=== PATIENT | female | born 1975 | race African-American/Black ===

== ENCOUNTER 2016-07-07 15:05 | Inpatient (IN) | payer OTHER ==
[~2016-07-07] VITALS: Ht 167.6 cm; Wt 85.8 kg
[2016-07-07] MEDS ORDERED: CARV12 PO (15:26)
[2016-07-07] MEDS ORDERED: BUME1TAB30 PO (15:26)
[2016-07-07] MEDS ORDERED: ENOX30DI5 SQ (15:26)
[2016-07-07] MEDS ORDERED: ASPI-556 PO (15:26)
[2016-07-07] MEDS ORDERED: LOSA50TA37 PO (15:26)
[2016-07-07] MEDS ORDERED: NITROGLYCERIN 2% (1 GM=INCH) PACKET TP ONE (15:45)
[2016-07-07] MEDS ORDERED: ONDANSETRON HCL 4 MG/2 ML VIAL IVP ONE (15:45)
[2016-07-07] MEDS ORDERED: ASPIRIN 81 MG CHEWABLE TABLET PO ONE (15:45)
[2016-07-07] MEDS ORDERED: MORPHINE SULFATE 4 MG/ML SYRINGE IVP ONE ×2 (15:45→17:30)
[2016-07-07 16:37] LABS: BASOPHILS % (AUTO) 0.4 % (0.0-2.0); EOSINOPHILS % (AUTO) 0.3 % (1.0-6.0); HEMATOCRIT 33.6 % (36-46); HEMOGLOBIN 10.6 g/dL (12.0-16.0); LYMPHOCYTES # (AUTO) 0.7 K/uL (1.0-4.8); LYMPHOCYTES % (AUTO) 15.8 % (22.0-44.0); MEAN CORPUSCULAR HEMOGLOBIN 26.6 pg (26.0-34.0); MEAN CORPUSCULAR HGB CONC 31.6 G/dL (31.0-37.0); MEAN CORPUSCULAR VOLUME 84 fL (80-100); MONOCYTES # (AUTO) 0.1 K/uL (0.1-1.0); MONOCYTES % (AUTO) 2.9 % (2.0-9.0); NEUTROPHILS # (AUTO) 3.7 K/uL (1.8-7.7); NEUTROPHILS % (AUTO) 80.6 % (40.0-70.0); PLATELET COUNT (AUTO) 127 K/uL (150-450); RED BLOOD CELL COUNT(AUTO) 3.99 MIL/uL (4.00-5.20); RED CELL DISTRIBUTION WIDTH 19.5 % (11.5-14.5); WHITE BLOOD COUNT (AUTO) 4.7 K/uL (4.5-11.0)
[2016-07-07 16:44] LABS: ANION GAP 11 mmol/L (8-16); CARBON DIOXIDE 24 mmol/L (22-29); CHLORIDE 102 mmol/L (98-107); CREATININE 0.96 mg/dL (0.60-1.30); POTASSIUM 5.7 mmol/L (3.5-5.1); SODIUM SERUM 137 mmol/L (136-145); UREA NITROGEN, BLOOD 21 mg/dL (7-18)
[2016-07-07 16:45] LABS: CALCIUM, TOTAL 9.2 mg/dL (8.8-10.5); GLOMERULAR FILTR. RATE CALC > 60 mL/min (>60)
[2016-07-07] MEDS ORDERED: IOVERSOL 350 MG/ML 100 ML VIAL ONE (16:48)
[2016-07-07 16:49] LABS: INR 1.1 (0.9-1.1); PROTHROMBIN TIME 11.1 SEC (9.4-11.6)
[2016-07-07 16:50] LABS: RBC MORPHOLOGY COMMENT ABNORMAL RBC MORPH
[2016-07-07 16:59] LABS: B-TYPE NATRIURETIC PEPTIDE 1530 pg/mL (0-100)
[2016-07-07] MEDS ORDERED: FUROSEMIDE 40 MG/4 ML VIAL IVP ONE (17:00)
[2016-07-07 17:09] LABS: ALANINE AMINOTRANSFERASE 49 U/L (12-78); ALBUMIN 3.6 g/dL (3.4-5.0); ASPARTATE AMINOTRANSFERASE 40 U/L (15-37); BILIRUBIN,TOTAL 0.4 mg/dL (0.1-1.0); CREATINE KINASE MB 0.7 ng/mL (0-5); CREATINE KINASE, TOTAL 99 U/L (26-192); TOTAL PROTEIN, SERUM 7.7 g/dL (6.4-8.2)
[2016-07-07] MEDS ORDERED: ALBUTEROL SULFATE 2.5 MG/0.5 ML NEB SOLUTION NEB PRN (18:30)
[2016-07-07] MEDS ORDERED: ACETAMINOPHEN 325 MG TABLET PO PRN (18:30)
[2016-07-07 18:56] LABS: APPEARANCE,URINE CLEAR (CLEAR); GLUCOSE, URINE (UA) NEGATIVE (NEGATIVE); KETONES,URINE NEGATIVE (NEGATIVE); LEUKOCYTE ESTERASE ,URINE SMALL (NEGATIVE); OCCULT BLOOD,URINE NEGATIVE (NEGATIVE); PH,URINE 6.5 (5.0-8.0); PROTEIN,URINE NEGATIVE (NEGATIVE)
[2016-07-07 19:00] LABS: ADD UA MICROSCOPIC YES
[2016-07-07 19:11] LABS: RBC,URINE None Seen /HPF (0-2); SQUAMOUS EPITHELIAL CELL,UR Moderate /LPF (None Seen)
[2016-07-07 20:30] VITALS: BP 111/76
[2016-07-07] MEDS: ONDANSETRON HCL 4 MG/2 ML VIAL IVP PRN (21:02)
[2016-07-07] MEDS: MORPHINE SULFATE 2 MG/ML SYRINGE IVP PRN ×2 (21:04→23:16)
[2016-07-07] MEDS: ZOLPIDEM TARTRATE 5 MG TABLET PO PRN (22:25)
[2016-07-07 23:20] VITALS: BP 101/73
[2016-07-07] MEDS ORDERED: PNEUMOCOCCAL VACCINE POLYVALENT 0.5 ML VIAL [PPSV23] IM ONE (23:45)
[2016-07-08] VITALS (10 sets, daily range): BP systolic 95–111; BP diastolic 65–79
[2016-07-08] MEDS: HEPARIN SODIUM,PORCINE 5,000 UNITS/ML VIAL SQ SCH ×2 (00:22→08:49)
[2016-07-08] MEDS: MORPHINE SULFATE 2 MG/ML SYRINGE IVP PRN ×10 (02:10→22:59)
[2016-07-08] MEDS ORDERED: SODIUM CHLORIDE 0.9% 250 ML IV ONE (02:29)
[2016-07-08] MEDS: LEVOFLOXACIN 500 MG/D5% WATER 100 ML IV SCH (02:40)
[2016-07-08] MEDS: ONDANSETRON HCL 4 MG/2 ML VIAL IVP PRN ×3 (04:27→18:18)
[2016-07-08] MEDS ORDERED: CARI350T PO (05:11)
[2016-07-08] MEDS ORDERED: FOLI1TAB15 PO (05:11)
[2016-07-08] MEDS ORDERED: MULT-1203 PO (05:11)
[2016-07-08] MEDS ORDERED: METO25 PO (05:11)
[2016-07-08] MEDS ORDERED: CLON0.5T4 PO (05:16)
[2016-07-08] MEDS ORDERED: MORP30TA44 PO (05:16)
[2016-07-08 06:35] LABS: BASOPHILS % (AUTO) 0.4 % (0.0-2.0); EOSINOPHILS % (AUTO) 0.6 % (1.0-6.0); HEMATOCRIT 30.1 % (36-46); HEMOGLOBIN 9.5 g/dL (12.0-16.0); LYMPHOCYTES # (AUTO) 1.3 K/uL (1.0-4.8); LYMPHOCYTES % (AUTO) 26.7 % (22.0-44.0); MEAN CORPUSCULAR HEMOGLOBIN 26.7 pg (26.0-34.0); MEAN CORPUSCULAR HGB CONC 31.5 G/dL (31.0-37.0); MEAN CORPUSCULAR VOLUME 85 fL (80-100); MONOCYTES # (AUTO) 0.3 K/uL (0.1-1.0); MONOCYTES % (AUTO) 5.9 % (2.0-9.0); NEUTROPHILS # (AUTO) 3.3 K/uL (1.8-7.7); NEUTROPHILS % (AUTO) 66.4 % (40.0-70.0); PLATELET COUNT (AUTO) 141 K/uL (150-450); RED BLOOD CELL COUNT(AUTO) 3.55 MIL/uL (4.00-5.20); RED CELL DISTRIBUTION WIDTH 18.8 % (11.5-14.5); WHITE BLOOD COUNT (AUTO) 4.9 K/uL (4.5-11.0)
[2016-07-08 06:40] LABS: ALANINE AMINOTRANSFERASE 36 U/L (12-78); ALBUMIN 3.2 g/dL (3.4-5.0); ANION GAP 10 mmol/L (8-16); ASPARTATE AMINOTRANSFERASE 25 U/L (15-37); BILIRUBIN,TOTAL 0.4 mg/dL (0.1-1.0); CALCIUM, TOTAL 8.7 mg/dL (8.8-10.5); CARBON DIOXIDE 25 mmol/L (22-29); CHLORIDE 101 mmol/L (98-107); CREATININE 1.07 mg/dL (0.60-1.30); GLOMERULAR FILTR. RATE CALC > 60 mL/min (>60); POTASSIUM 4.4 mmol/L (3.5-5.1); SODIUM SERUM 136 mmol/L (136-145); TOTAL PROTEIN, SERUM 6.8 g/dL (6.4-8.2); UREA NITROGEN, BLOOD 18 mg/dL (7-18)
[2016-07-08 06:41] LABS: CHOL/HDL RATIO 2.8 (3.9-5.7); THYROID STIMULATING HORMONE 3.85 uIU/mL (0.36-3.74)
[2016-07-08 08:11] LABS: IRON, SERUM 54 mcg/dL (50-175); TOTAL IRON BINDING CAPACITY 458 mcg/dL (250-450)
[2016-07-08] MEDS: PANTOPRAZOLE SODIUM 40 MG DR TABLET PO SCH (08:51)
[2016-07-08] MEDS: ASPIRIN 81 MG EC TABLET PO SCH (08:51)
[2016-07-08] MEDS ORDERED: BUMETANIDE 1 MG TABLET PO SCH (09:00)
[2016-07-08] MEDS ORDERED: CARVEDILOL 12.5 MG TABLET PO SCH (09:00)
[2016-07-08] MEDS ORDERED: LOSARTAN POTASSIUM 50 MG TABLET PO SCH (09:00)
[2016-07-08 09:06] LABS: RBC MORPHOLOGY COMMENT ABNORMAL RBC MORPH
[2016-07-08 09:56] LABS: SICKLE SCREEN NEGATIVE (NEGATIVE)
[2016-07-08] MEDS: SACUBITRIL/VALSARTAN 24-26 MG TABLET PO SCH ×2 (10:45→21:00)
[2016-07-08] MEDS: SPIRONOLACTONE 25 MG TABLET PO SCH (11:00)
[2016-07-08] MEDS ORDERED: ENOX100D5 SQ (11:07)
[2016-07-08] MEDS: FUROSEMIDE 40 MG/4 ML VIAL IVP SCH ×2 (12:26→21:00)
[2016-07-08] MEDS: OxyCODONE HCL/ACETAMINOPHEN 5-325 MG TABLET PO PRN ×2 (17:16→21:32)
[2016-07-08] MEDS: CARVEDILOL 12.5 MG TABLET PO SCH (21:00)
[2016-07-08] MEDS: ZOLPIDEM TARTRATE 5 MG TABLET PO PRN (21:32)
[2016-07-09] MEDS: MORPHINE SULFATE 2 MG/ML SYRINGE IVP PRN ×9 (01:13→23:45)
[2016-07-09] MEDS: LEVOFLOXACIN 500 MG/D5% WATER 100 ML IV SCH (01:13)
[2016-07-09] MEDS: ONDANSETRON HCL 4 MG/2 ML VIAL IVP PRN ×4 (01:20→23:45)
[2016-07-09] MEDS ORDERED: SODIUM CHLORIDE 0.9% 250 ML IV ONE (01:28)
[2016-07-09 04:00] VITALS: BP 103/73
[2016-07-09 07:30] VITALS: BP 101/70
[2016-07-09] MEDS: FUROSEMIDE 40 MG/4 ML VIAL IVP SCH ×2 (07:57→21:00)
[2016-07-09] MEDS: ASPIRIN 81 MG EC TABLET PO SCH (07:58)
[2016-07-09] MEDS: CARVEDILOL 12.5 MG TABLET PO SCH ×2 (07:59→21:10)
[2016-07-09] MEDS: PANTOPRAZOLE SODIUM 40 MG DR TABLET PO SCH (08:34)
[2016-07-09] MEDS: ENOXAPARIN SODIUM 100 MG/ML PF SYRINGE SQ SCH (08:34)
[2016-07-09] MEDS: SPIRONOLACTONE 25 MG TABLET PO SCH (09:00)
[2016-07-09] MEDS: OxyCODONE HCL/ACETAMINOPHEN 5-325 MG TABLET PO PRN (09:14)
[2016-07-09 09:18] LABS: BASOPHILS % (AUTO) 0.7 % (0.0-2.0); EOSINOPHILS % (AUTO) 1.5 % (1.0-6.0); HEMATOCRIT 30.3 % (36-46); HEMOGLOBIN 9.6 g/dL (12.0-16.0); LYMPHOCYTES # (AUTO) 1.4 K/uL (1.0-4.8); LYMPHOCYTES % (AUTO) 35.6 % (22.0-44.0); MEAN CORPUSCULAR HEMOGLOBIN 26.8 pg (26.0-34.0); MEAN CORPUSCULAR HGB CONC 31.9 G/dL (31.0-37.0); MEAN CORPUSCULAR VOLUME 84 fL (80-100); MONOCYTES # (AUTO) 0.3 K/uL (0.1-1.0); MONOCYTES % (AUTO) 6.9 % (2.0-9.0); NEUTROPHILS # (AUTO) 2.1 K/uL (1.8-7.7); NEUTROPHILS % (AUTO) 55.3 % (40.0-70.0); PLATELET COUNT (AUTO) 142 K/uL (150-450); RED CELL DISTRIBUTION WIDTH 19.4 % (11.5-14.5); WHITE BLOOD COUNT (AUTO) 3.8 K/uL (4.5-11.0)
[2016-07-09 09:47] LABS: ALANINE AMINOTRANSFERASE 34 U/L (12-78); ALBUMIN 3.3 g/dL (3.4-5.0); ANION GAP 12 mmol/L (8-16); ASPARTATE AMINOTRANSFERASE 23 U/L (15-37); CARBON DIOXIDE 24 mmol/L (22-29); CHLORIDE 100 mmol/L (98-107); CREATININE 1.12 mg/dL (0.60-1.30); GLOMERULAR FILTR. RATE CALC > 60 mL/min (>60); POTASSIUM 4.1 mmol/L (3.5-5.1); SODIUM SERUM 136 mmol/L (136-145); TOTAL PROTEIN, SERUM 7.2 g/dL (6.4-8.2)
[2016-07-09 09:57] LABS: RBC MORPHOLOGY COMMENT ABNORMAL RBC MORPH
[2016-07-09 10:04] LABS: BILIRUBIN,TOTAL 0.5 mg/dL (0.1-1.0); UREA NITROGEN, BLOOD 19 mg/dL (7-18)
[2016-07-09 11:25] VITALS: BP 127/69
[2016-07-09] MEDS: SACUBITRIL/VALSARTAN 24-26 MG TABLET PO SCH ×2 (12:11→21:00)
[2016-07-09 15:30] VITALS: BP 98/62
[2016-07-09 19:26] VITALS: BP 145/73
[2016-07-09 23:56] VITALS: BP 101/74
[2016-07-10] VITALS (8 sets, daily range): BP systolic 83–116; BP diastolic 54–75
[2016-07-10] MEDS: LEVOFLOXACIN 500 MG/D5% WATER 100 ML IV SCH (00:05)
[2016-07-10] MEDS: MORPHINE SULFATE 2 MG/ML SYRINGE IVP PRN ×8 (01:52→22:11)
[2016-07-10] MEDS ORDERED: 0.9% SODIUM CHLORIDE 10 ML SYRINGE IVP PRN (03:45)
[2016-07-10] MEDS: ONDANSETRON HCL 4 MG/2 ML VIAL IVP PRN ×3 (04:50→19:49)
[2016-07-10 06:49] LABS: ANION GAP 9 mmol/L (8-16); CALCIUM, TOTAL 8.7 mg/dL (8.8-10.5); CARBON DIOXIDE 25 mmol/L (22-29); CHLORIDE 105 mmol/L (98-107); CREATININE 1.11 mg/dL (0.60-1.30); GLOMERULAR FILTR. RATE CALC > 60 mL/min (>60); POTASSIUM 4.5 mmol/L (3.5-5.1); SODIUM SERUM 139 mmol/L (136-145); UREA NITROGEN, BLOOD 21 mg/dL (7-18)
[2016-07-10] MEDS: SACUBITRIL/VALSARTAN 24-26 MG TABLET PO SCH ×3 (09:00→22:10)
[2016-07-10] MEDS: CARVEDILOL 12.5 MG TABLET PO SCH ×3 (09:00→23:14)
[2016-07-10] MEDS: FUROSEMIDE 40 MG/4 ML VIAL IVP SCH ×2 (09:00→23:14)
[2016-07-10] MEDS: SPIRONOLACTONE 25 MG TABLET PO SCH (09:00)
[2016-07-10] MEDS: PANTOPRAZOLE SODIUM 40 MG DR TABLET PO SCH (09:24)
[2016-07-10] MEDS: ENOXAPARIN SODIUM 100 MG/ML PF SYRINGE SQ SCH (09:24)
[2016-07-10] MEDS: ASPIRIN 81 MG EC TABLET PO SCH (09:24)
[2016-07-10] MEDS: OxyCODONE HCL/ACETAMINOPHEN 5-325 MG TABLET PO PRN ×2 (10:46→18:30)
[2016-07-10] MEDS: ZOLPIDEM TARTRATE 5 MG TABLET PO PRN (23:13)
[2016-07-11] MEDS: MORPHINE SULFATE 2 MG/ML SYRINGE IVP PRN ×7 (00:31→18:03)
[2016-07-11] MEDS: LEVOFLOXACIN 500 MG/D5% WATER 100 ML IV SCH (00:31)
[2016-07-11] MEDS: ONDANSETRON HCL 4 MG/2 ML VIAL IVP PRN ×2 (03:36→12:04)
[2016-07-11 05:13] VITALS: BP 119/71
[2016-07-11 07:22] VITALS: BP 113/67
[2016-07-11] MEDS: SACUBITRIL/VALSARTAN 24-26 MG TABLET PO SCH ×2 (08:51→09:00)
[2016-07-11] MEDS: SPIRONOLACTONE 25 MG TABLET PO SCH (08:51)
[2016-07-11] MEDS: PANTOPRAZOLE SODIUM 40 MG DR TABLET PO SCH (08:51)
[2016-07-11] MEDS: FUROSEMIDE 40 MG/4 ML VIAL IVP SCH (08:52)
[2016-07-11] MEDS: CARVEDILOL 12.5 MG TABLET PO SCH ×2 (08:52→09:00)
[2016-07-11] MEDS: ASPIRIN 81 MG EC TABLET PO SCH (08:52)
[2016-07-11] MEDS: ENOXAPARIN SODIUM 100 MG/ML PF SYRINGE SQ SCH (08:53)
[2016-07-11 11:21] VITALS: BP 125/65
[2016-07-11] MEDS ORDERED: CARV3.1231 PO (13:53)
[2016-07-11] MEDS ORDERED: SACU1TAB PO (14:07)
[2016-07-11] MEDS ORDERED: SPIR25 PO ×3 (14:08→14:10)
[2016-07-11] MEDS ORDERED: OXYC1TAB72 PO (14:11)
[2016-07-11 15:45] VITALS: BP 106/53
[2016-07-11 18:03] VITALS: BP 123/79
== END 2016-07-11 19:15 | disposition home or self-care (01) | DRG 194 ==
LOC: EMS 15:09 → 5S 18:13
PROVIDERS: ADMIT Hospitalist; ATTEND Hospitalist
PROC: 3E0234Z Introduction of Serum, Toxoid and Vaccine into Muscle, Percutaneous Approach (ICD-10-PCS; principal; 2016-07-09)
DX: I50.23 Acute on chronic systolic (congestive) heart failure (principal); D57.00 Hb-SS disease with crisis, unspecified; I42.9 Cardiomyopathy, unspecified; I45.89 Other specified conduction disorders; N39.0 Urinary tract infection, site not specified; E87.5 Hyperkalemia; D57.1 Sickle-cell disease without crisis; I25.2 Old myocardial infarction; M79.661 Pain in right lower leg; R55 Syncope and collapse; E87.6 Hypokalemia; Z88.1 Allergy status to other antibiotic agents; Z86.718 Personal history of other venous thrombosis and embolism; Z79.82 Long term (current) use of aspirin; Z79.899 Other long term (current) drug therapy; Z95.0 Presence of cardiac pacemaker; Z98.890 Other specified postprocedural states; Z95.810 Presence of automatic (implantable) cardiac defibrillator; Z23 Encounter for immunization
CPT/HCPCS: 71260; 82607; 82746; 83540; 83550; 83735; 84443; 85660; 87081; 87086; 90471; 93005; 93306; 93971; 96374; 96375; 99285; J1644; J1650; J1940; J1956; J2270; J2405; J7050

== ENCOUNTER 2016-07-22 02:48 | Inpatient (IN) | payer OTHER ==
[~2016-07-22] VITALS: Ht 170.2 cm; Wt 96.3 kg
[~2016-07-22 02:48] MED LIST: ASPI-556 PO; BUME1TAB30 PO; CARI350T PO; CARV3.1231 PO; CLON0.5T4 PO; ENOX100D5 SQ; FOLI1TAB15 PO; MORP30TA44 PO; OXYC1TAB72 PO; SACU1TAB PO; SPIR25 PO
[2016-07-22] MEDS ORDERED: BUME1TAB30 PO (03:02)
[2016-07-22] MEDS ORDERED: SLOWK8 PO (03:04)
[2016-07-22] MEDS ORDERED: PROM25 PO (03:13)
[2016-07-22] MEDS ORDERED: ONDANSETRON HCL 4 MG/2 ML VIAL IVP ONE (04:00)
[2016-07-22] MEDS ORDERED: HYDROmorphone 2 MG/ML SYRINGE IVP ONE (04:00)
[2016-07-22 04:41] LABS: BASOPHILS # (AUTO) 0.02 K/uL (0.00-0.20); BASOPHILS % (AUTO) 0.6 % (0.0-2.0); EOSINOPHILS # (AUTO) 0.03 K/uL (0.00-0.70); EOSINOPHILS % (AUTO) 0.67 % (1.0-6.0); HEMATOCRIT 28.8 % (36-46); HEMOGLOBIN 9.3 g/dL (12.0-16.0); MEAN CORPUSCULAR HEMOGLOBIN 27.2 pg (26.0-34.0); MEAN CORPUSCULAR HGB CONC 32.3 G/dL (31.0-37.0); MEAN CORPUSCULAR VOLUME 84 fL (80-100); MONOCYTES # (AUTO) 0.3 K/uL (0.1-1.0); MONOCYTES % (AUTO) 7.1 % (2.0-9.0); NEUTROPHILS # (AUTO) 2.4 K/uL (1.8-7.7); NEUTROPHILS % (AUTO) 64.7 % (40.0-70.0); PLATELET COUNT (AUTO) 165 K/uL (150-450); RED BLOOD CELL COUNT(AUTO) 3.41 MIL/uL (4.00-5.20); RED CELL DISTRIBUTION WIDTH 19.7 % (11.5-14.5); WHITE BLOOD COUNT (AUTO) 3.7 K/uL (4.5-11.0)
[2016-07-22 04:53] LABS: ANION GAP 13 mmol/L (8-16); CALCIUM, TOTAL 8.5 mg/dL (8.8-10.5); CARBON DIOXIDE 22 mmol/L (22-29); CHLORIDE 103 mmol/L (98-107); CREATININE 0.93 mg/dL (0.60-1.30); GLOMERULAR FILTR. RATE CALC > 60 mL/min (>60); POTASSIUM 4.2 mmol/L (3.5-5.1); SODIUM SERUM 138 mmol/L (136-145); UREA NITROGEN, BLOOD 20 mg/dL (7-18)
[2016-07-22 04:54] LABS: INR 1.1 (0.9-1.1); PROTHROMBIN TIME 11.5 SEC (9.4-11.6)
[2016-07-22 04:58] LABS: RBC MORPHOLOGY COMMENT ABNORMAL RBC MORPH
[2016-07-22 05:00] LABS: B-TYPE NATRIURETIC PEPTIDE 1200 pg/mL (0-100)
[2016-07-22] MEDS ORDERED: ACETAMINOPHEN 325 MG TABLET PO PRN ×2 (05:15→18:00)
[2016-07-22] MEDS ORDERED: FUROSEMIDE 40 MG/4 ML VIAL IVP ONE (05:15)
[2016-07-22] MEDS ORDERED: 0.9% SODIUM CHLORIDE 10 ML SYRINGE IVP PRN ×2 (05:15→18:00)
[2016-07-22 05:18] LABS: ALANINE AMINOTRANSFERASE 40 U/L (12-78); ALBUMIN 3.2 g/dL (3.4-5.0); ASPARTATE AMINOTRANSFERASE 30 U/L (15-37); BILIRUBIN,TOTAL 0.4 mg/dL (0.1-1.0); CREATINE KINASE MB 1.1 ng/mL (0-5); CREATINE KINASE, TOTAL 121 U/L (26-192); TOTAL PROTEIN, SERUM 6.9 g/dL (6.4-8.2)
[2016-07-22] MEDS ORDERED: MORPHINE SULFATE 2 MG/ML SYRINGE IVP ONE (07:00)
[2016-07-22] MEDS: ONDANSETRON HCL 4 MG/2 ML VIAL IVP PRN ×3 (10:01→20:07)
[2016-07-22 10:15] LABS: ADD UA MICROSCOPIC YES; APPEARANCE,URINE CLEAR (CLEAR); GLUCOSE, URINE (UA) NEGATIVE (NEGATIVE); KETONES,URINE NEGATIVE (NEGATIVE); LEUKOCYTE ESTERASE ,URINE NEGATIVE (NEGATIVE); OCCULT BLOOD,URINE NEGATIVE (NEGATIVE); PROTEIN,URINE POS 1+ (NEGATIVE)
[2016-07-22] MEDS ORDERED: HYDROmorphone 2 MG/ML SYRINGE IVP PRN (10:30)
[2016-07-22 14:40] VITALS: BP 116/78
[2016-07-22] MEDS ORDERED: OXYC5CAP3 PO (14:46)
[2016-07-22] MEDS ORDERED: ZOLP10 PO (14:46)
[2016-07-22] MEDS ORDERED: FOLI1TAB48 PO (14:46)
[2016-07-22] MEDS ORDERED: OXYC10IR PO (15:13)
[2016-07-22] MEDS: HYDROmorphone 2 MG/ML SYRINGE IVP PRN ×2 (16:05→20:02)
[2016-07-22] MEDS ORDERED: OxyCODONE HCL 10 MG IR TABLET PO PRN (17:45)
[2016-07-22] MEDS ORDERED: ZOLPIDEM TARTRATE 10 MG TABLET PO PRN (17:45)
[2016-07-22] MEDS ORDERED: OxyCODONE HCL/ACETAMINOPHEN 5-325 MG TABLET PO PRN ×2 (18:00)
[2016-07-22] MEDS ORDERED: MAGNESIUM HYDROXIDE SUSPENSION 30 ML UDCUP PO PRN (18:00)
[2016-07-22] MEDS: POTASSIUM CHLORIDE 8 MEQ ER TABLET PO SCH (18:17)
[2016-07-22] MEDS: MULTIVITAMINS WITH MINERALS, THERAPEUTIC TABLET PO SCH (18:17)
[2016-07-22] MEDS: PANTOPRAZOLE SODIUM 40 MG/VIAL IVP SCH (18:17)
[2016-07-22 19:31] VITALS: BP 105/78
[2016-07-22] MEDS: SACUBITRIL/VALSARTAN 24-26 MG TABLET PO SCH (20:00)
[2016-07-22] MEDS: DOCUSATE SODIUM 100 MG CAPSULE PO SCH (20:01)
[2016-07-22] MEDS: BUMETANIDE 0.25 MG/ML 4 ML VIAL IVP SCH (20:02)
[2016-07-22] MEDS ORDERED: BUMETANIDE 0.25 MG/ML 4 ML VIAL IVP SCH (21:00)
[2016-07-22 21:22] VITALS: BP 125/85
[2016-07-22] MEDS: CARVEDILOL 3.125 MG TABLET PO SCH (21:24)
[2016-07-22 23:39] VITALS: BP 110/83
[2016-07-23] VITALS (7 sets, daily range): BP systolic 92–116; BP diastolic 57–75
[2016-07-23] MEDS: HYDROmorphone 2 MG/ML SYRINGE IVP PRN ×6 (00:18→22:49)
[2016-07-23] MEDS: ONDANSETRON HCL 4 MG/2 ML VIAL IVP PRN ×3 (04:35→22:49)
[2016-07-23 07:00] LABS: ANION GAP 15 mmol/L (8-16); CARBON DIOXIDE 18 mmol/L (22-29); CHLORIDE 103 mmol/L (98-107); CREATININE 0.95 mg/dL (0.60-1.30); GLOMERULAR FILTR. RATE CALC > 60 mL/min (>60); POTASSIUM 4.6 mmol/L (3.5-5.1); SODIUM SERUM 136 mmol/L (136-145); UREA NITROGEN, BLOOD 22 mg/dL (7-18)
[2016-07-23 07:16] LABS: BASOPHILS % (AUTO) 0.5 % (0.0-2.0); EOSINOPHILS % (AUTO) 0.7 % (1.0-6.0); HEMATOCRIT 29.3 % (36-46); HEMOGLOBIN 9.3 g/dL (12.0-16.0); LYMPHOCYTES # (AUTO) 1.7 K/uL (1.0-4.8); LYMPHOCYTES % (AUTO) 32.3 % (22.0-44.0); MEAN CORPUSCULAR HEMOGLOBIN 26.9 pg (26.0-34.0); MEAN CORPUSCULAR HGB CONC 31.8 G/dL (31.0-37.0); MEAN CORPUSCULAR VOLUME 85 fL (80-100); MONOCYTES # (AUTO) 0.3 K/uL (0.1-1.0); MONOCYTES % (AUTO) 6.7 % (2.0-9.0); NEUTROPHILS # (AUTO) 3.1 K/uL (1.8-7.7); NEUTROPHILS % (AUTO) 59.8 % (40.0-70.0); PLATELET COUNT (AUTO) 184 K/uL (150-450); RED BLOOD CELL COUNT(AUTO) 3.47 MIL/uL (4.00-5.20); WHITE BLOOD COUNT (AUTO) 5.2 K/uL (4.5-11.0)
[2016-07-23] MEDS: PANTOPRAZOLE SODIUM 40 MG/VIAL IVP SCH (08:56)
[2016-07-23] MEDS: MULTIVITAMINS WITH MINERALS, THERAPEUTIC TABLET PO SCH (08:56)
[2016-07-23] MEDS: DOCUSATE SODIUM 100 MG CAPSULE PO SCH ×2 (08:56→21:07)
[2016-07-23] MEDS: POTASSIUM CHLORIDE 8 MEQ ER TABLET PO SCH (08:56)
[2016-07-23] MEDS: ENOXAPARIN SODIUM 100 MG/ML PF SYRINGE SQ SCH (08:56)
[2016-07-23] MEDS: SACUBITRIL/VALSARTAN 24-26 MG TABLET PO SCH (08:57)
[2016-07-23] MEDS: ASPIRIN 81 MG EC TABLET PO SCH (08:57)
[2016-07-23] MEDS: CARVEDILOL 3.125 MG TABLET PO SCH ×2 (08:57→21:00)
[2016-07-23] MEDS: BUMETANIDE 0.25 MG/ML 4 ML VIAL IVP SCH ×2 (11:42→21:00)
[2016-07-24] MEDS: SACUBITRIL/VALSARTAN 24-26 MG TABLET PO SCH ×3 (01:00→21:00)
[2016-07-24] MEDS: HYDROmorphone 2 MG/ML SYRINGE IVP PRN ×5 (03:34→22:32)
[2016-07-24 05:06] VITALS: BP 102/76
[2016-07-24 06:56] LABS: ANION GAP 7 mmol/L (8-16); CALCIUM, TOTAL 8.5 mg/dL (8.8-10.5); CARBON DIOXIDE 26 mmol/L (22-29); CHLORIDE 104 mmol/L (98-107); CREATINE KINASE, TOTAL 75 U/L (26-192); CREATININE 1.07 mg/dL (0.60-1.30); GLOMERULAR FILTR. RATE CALC > 60 mL/min (>60); POTASSIUM 4.2 mmol/L (3.5-5.1); SODIUM SERUM 137 mmol/L (136-145); UREA NITROGEN, BLOOD 18 mg/dL (7-18)
[2016-07-24 07:02] VITALS: BP 109/72
[2016-07-24] MEDS: MULTIVITAMINS WITH MINERALS, THERAPEUTIC TABLET PO SCH (08:48)
[2016-07-24] MEDS: PANTOPRAZOLE SODIUM 40 MG/VIAL IVP SCH (08:49)
[2016-07-24] MEDS: POTASSIUM CHLORIDE 8 MEQ ER TABLET PO SCH (08:49)
[2016-07-24] MEDS: DOCUSATE SODIUM 100 MG CAPSULE PO SCH ×2 (08:49→20:57)
[2016-07-24] MEDS: ENOXAPARIN SODIUM 100 MG/ML PF SYRINGE SQ SCH (08:49)
[2016-07-24] MEDS: ASPIRIN 81 MG EC TABLET PO SCH (08:50)
[2016-07-24] MEDS: CARVEDILOL 3.125 MG TABLET PO SCH ×2 (08:50→19:51)
[2016-07-24] MEDS: ONDANSETRON HCL 4 MG/2 ML VIAL IVP PRN ×2 (08:56→18:17)
[2016-07-24 10:10] LABS: CREATINE KINASE MB 0.9 ng/mL (0-5)
[2016-07-24 10:39] LABS: B-TYPE NATRIURETIC PEPTIDE 685 pg/mL (0-100)
[2016-07-24 12:06] VITALS: BP 92/63
[2016-07-24] MEDS: BUMETANIDE 0.25 MG/ML 4 ML VIAL IVP SCH ×2 (12:22→19:50)
[2016-07-24 15:13] VITALS: BP 108/56
[2016-07-24 19:33] VITALS: BP 98/67
[2016-07-24 23:13] VITALS: BP 116/81
[2016-07-25] VITALS (15 sets, daily range): BP systolic 95–128; BP diastolic 66–99
[2016-07-25] MEDS: ONDANSETRON HCL 4 MG/2 ML VIAL IVP PRN ×3 (02:36→21:10)
[2016-07-25] MEDS: HYDROmorphone 2 MG/ML SYRINGE IVP PRN ×4 (02:36→20:25)
[2016-07-25] MEDS: DOCUSATE SODIUM 100 MG CAPSULE PO SCH ×2 (08:16→21:10)
[2016-07-25] MEDS: PANTOPRAZOLE SODIUM 40 MG/VIAL IVP SCH (08:16)
[2016-07-25] MEDS: BUMETANIDE 0.25 MG/ML 4 ML VIAL IVP SCH ×2 (08:16→12:50)
[2016-07-25] MEDS: MULTIVITAMINS WITH MINERALS, THERAPEUTIC TABLET PO SCH (08:17)
[2016-07-25] MEDS: CARVEDILOL 3.125 MG TABLET PO SCH ×2 (08:17→21:10)
[2016-07-25] MEDS: SACUBITRIL/VALSARTAN 24-26 MG TABLET PO SCH ×2 (08:17→21:10)
[2016-07-25] MEDS: ASPIRIN 81 MG EC TABLET PO SCH (08:17)
[2016-07-25] MEDS: POTASSIUM CHLORIDE 8 MEQ ER TABLET PO SCH (08:17)
[2016-07-25] MEDS: ENOXAPARIN SODIUM 100 MG/ML PF SYRINGE SQ SCH (08:18)
[2016-07-25] MEDS ORDERED: HEPARIN SODIUM 1000 UNITS/NS 1,000 ML ONE (10:49)
[2016-07-25] MEDS ORDERED: IOHEXOL 300 MG/ML 150 ML VIAL ONE (10:49)
[2016-07-25] MEDS ORDERED: SODIUM BICARBONATE 50 MEQ/50 ML VIAL ONE (10:49)
[2016-07-25] MEDS ORDERED: LIDOCAINE HCL/PF 1% 30 ML VIAL ONE (10:49)
[2016-07-25] MEDS ORDERED: DiphenhydrAMINE HCL 50 MG/ML VIAL ONE (11:24)
[2016-07-25] MEDS ORDERED: MethylPREDNISolone SOD SUCC 125 MG/2 ML VIAL ONE (11:24)
[2016-07-25] MEDS ORDERED: SODIUM CHLORIDE 0.9% 500 ML IV ONE (11:38)
[2016-07-25] MEDS ORDERED: HEPARIN SODIUM 1000 UNITS/NS 1,000 ML IARTER ONE (11:38)
[2016-07-25] MEDS ORDERED: DiphenhydrAMINE HCL 50 MG/ML VIAL IVP ONE (11:45)
[2016-07-25] MEDS ORDERED: IOHEXOL 300 MG/ML 150 ML VIAL IARTER ONE (11:45)
[2016-07-25] MEDS ORDERED: LIDOCAINE 1% 30 ML/SOD BICARB 8.4% 4 ML SQ ONE (11:45)
[2016-07-25] MEDS ORDERED: MethylPREDNISolone SOD SUCC 125 MG/2 ML VIAL IVP ONE (11:45)
[2016-07-26] VITALS (7 sets, daily range): BP systolic 91–106; BP diastolic 58–81
[2016-07-26] MEDS: HYDROmorphone 2 MG/ML SYRINGE IVP PRN ×5 (01:07→23:40)
[2016-07-26 06:12] LABS: BASOPHILS % (AUTO) 0.2 % (0.0-2.0); EOSINOPHILS % (AUTO) 0 % (1.0-6.0); HEMATOCRIT 27.5 % (36-46); HEMOGLOBIN 8.7 g/dL (12.0-16.0); LYMPHOCYTES # (AUTO) 0.6 K/uL (1.0-4.8); MEAN CORPUSCULAR HEMOGLOBIN 27.2 pg (26.0-34.0); MEAN CORPUSCULAR HGB CONC 31.6 G/dL (31.0-37.0); MEAN CORPUSCULAR VOLUME 86 fL (80-100); MONOCYTES # (AUTO) 0.6 K/uL (0.1-1.0); MONOCYTES % (AUTO) 7.7 % (2.0-9.0); NEUTROPHILS # (AUTO) 6.8 K/uL (1.8-7.7); NEUTROPHILS % (AUTO) 84.1 % (40.0-70.0); PLATELET COUNT (AUTO) 196 K/uL (150-450); RED CELL DISTRIBUTION WIDTH 19.4 % (11.5-14.5)
[2016-07-26 06:23] LABS: ANION GAP 6 mmol/L (8-16); CALCIUM, TOTAL 8.7 mg/dL (8.8-10.5); CARBON DIOXIDE 28 mmol/L (22-29); CHLORIDE 103 mmol/L (98-107); CREATININE 1.03 mg/dL (0.60-1.30); GLOMERULAR FILTR. RATE CALC > 60 mL/min (>60); POTASSIUM 4.7 mmol/L (3.5-5.1); SODIUM SERUM 137 mmol/L (136-145); UREA NITROGEN, BLOOD 19 mg/dL (7-18)
[2016-07-26 08:54] LABS: RBC MORPHOLOGY COMMENT ABNORMAL RBC MORPH
[2016-07-26] MEDS: SACUBITRIL/VALSARTAN 24-26 MG TABLET PO SCH ×2 (09:00→21:53)
[2016-07-26] MEDS: CARVEDILOL 3.125 MG TABLET PO SCH ×2 (09:00→23:41)
[2016-07-26] MEDS: PANTOPRAZOLE SODIUM 40 MG/VIAL IVP SCH (09:18)
[2016-07-26] MEDS: BUMETANIDE 0.25 MG/ML 4 ML VIAL IVP SCH ×2 (09:18→21:53)
[2016-07-26] MEDS: DOCUSATE SODIUM 100 MG CAPSULE PO SCH ×2 (09:18→21:53)
[2016-07-26] MEDS: POTASSIUM CHLORIDE 8 MEQ ER TABLET PO SCH (09:19)
[2016-07-26] MEDS: ASPIRIN 81 MG EC TABLET PO SCH (09:19)
[2016-07-26] MEDS: MULTIVITAMINS WITH MINERALS, THERAPEUTIC TABLET PO SCH (09:20)
[2016-07-26] MEDS: ENOXAPARIN SODIUM 100 MG/ML PF SYRINGE SQ SCH (10:05)
[2016-07-26] MEDS: ONDANSETRON HCL 4 MG/2 ML VIAL IVP PRN (10:17)
[2016-07-27 05:12] VITALS: BP 104/59
[2016-07-27 07:31] VITALS: BP 98/59
[2016-07-27] MEDS: ASPIRIN 81 MG EC TABLET PO SCH (08:03)
[2016-07-27] MEDS: SACUBITRIL/VALSARTAN 24-26 MG TABLET PO SCH (08:03)
[2016-07-27] MEDS: MULTIVITAMINS WITH MINERALS, THERAPEUTIC TABLET PO SCH (08:03)
[2016-07-27] MEDS: PANTOPRAZOLE SODIUM 40 MG/VIAL IVP SCH (08:04)
[2016-07-27] MEDS: DOCUSATE SODIUM 100 MG CAPSULE PO SCH (08:04)
[2016-07-27] MEDS: ENOXAPARIN SODIUM 100 MG/ML PF SYRINGE SQ SCH (08:05)
[2016-07-27] MEDS: POTASSIUM CHLORIDE 8 MEQ ER TABLET PO SCH (08:07)
[2016-07-27] MEDS: CARVEDILOL 3.125 MG TABLET PO SCH (09:00)
[2016-07-27 09:08] VITALS: BP 113/71
[2016-07-27] MEDS: HYDROmorphone 2 MG/ML SYRINGE IVP PRN ×2 (09:10→15:28)
[2016-07-27] MEDS ORDERED: BUMETANIDE 0.25 MG/ML 10 ML VIAL IVP ONE ×2 (10:00→21:00)
[2016-07-27 10:17] LABS: BASOPHILS % (AUTO) 0.8 % (0.0-2.0); EOSINOPHILS % (AUTO) 1.3 % (1.0-6.0); HEMATOCRIT 29.1 % (36-46); HEMOGLOBIN 9.1 g/dL (12.0-16.0); LYMPHOCYTES # (AUTO) 1.7 K/uL (1.0-4.8); LYMPHOCYTES % (AUTO) 42.6 % (22.0-44.0); MEAN CORPUSCULAR HEMOGLOBIN 26.9 pg (26.0-34.0); MEAN CORPUSCULAR HGB CONC 31.1 G/dL (31.0-37.0); MEAN CORPUSCULAR VOLUME 86 fL (80-100); MONOCYTES # (AUTO) 0.3 K/uL (0.1-1.0); MONOCYTES % (AUTO) 8.3 % (2.0-9.0); NEUTROPHILS # (AUTO) 1.9 K/uL (1.8-7.7); PLATELET COUNT (AUTO) 181 K/uL (150-450); RED BLOOD CELL COUNT(AUTO) 3.37 MIL/uL (4.00-5.20); RED CELL DISTRIBUTION WIDTH 19.4 % (11.5-14.5)
[2016-07-27 10:18] LABS: RBC MORPHOLOGY COMMENT ABNORMAL RBC MORPH
[2016-07-27 10:30] LABS: ANION GAP 7 mmol/L (8-16); CALCIUM, TOTAL 8.5 mg/dL (8.8-10.5); CARBON DIOXIDE 32 mmol/L (22-29); CHLORIDE 103 mmol/L (98-107); CREATININE 0.98 mg/dL (0.60-1.30); GLOMERULAR FILTR. RATE CALC > 60 mL/min (>60); POTASSIUM 4.1 mmol/L (3.5-5.1); SODIUM SERUM 142 mmol/L (136-145); UREA NITROGEN, BLOOD 21 mg/dL (7-18)
[2016-07-27 10:39] LABS: B-TYPE NATRIURETIC PEPTIDE 629 pg/mL (0-100)
[2016-07-27 11:26] VITALS: BP 130/67
[2016-07-27 15:16] VITALS: BP 106/74
[2016-07-28] MEDS ORDERED: BUMETANIDE 0.25 MG/ML 4 ML VIAL IVP SCH (09:00)
== END 2016-07-27 21:45 | disposition home or self-care (01) | DRG 191 ==
LOC: EMS 02:49 → 5N 13:07
PROVIDERS: ADMIT Internal Medicine; ATTEND Internal Medicine
PROC: 4A023N8 Measurement of Cardiac Sampling and Pressure, Bilateral, Percutaneous Approach (ICD-10-PCS; principal; 2016-07-25)
PROC: B211YZZ Fluoroscopy of Multiple Coronary Arteries using Other Contrast (ICD-10-PCS; 2016-07-25)
PROC: B215YZZ Fluoroscopy of Left Heart using Other Contrast (ICD-10-PCS; 2016-07-25)
PROC: B41FYZZ Fluoroscopy of Right Lower Extremity Arteries using Other Contrast (ICD-10-PCS; 2016-07-25)
DX: I11.0 Hypertensive heart disease with heart failure (principal); D57.00 Hb-SS disease with crisis, unspecified; O90.3 Peripartum cardiomyopathy; I50.23 Acute on chronic systolic (congestive) heart failure; I42.8 Other cardiomyopathies; R07.89 Other chest pain; E66.3 Overweight; Z95.810 Presence of automatic (implantable) cardiac defibrillator; Z88.1 Allergy status to other antibiotic agents; Z91.013 Allergy to seafood; Z79.899 Other long term (current) drug therapy; Z79.82 Long term (current) use of aspirin; Z98.51 Tubal ligation status; Z98.890 Other specified postprocedural states; Z68.33 Body mass index [BMI] 33.0-33.9, adult; Z86.718 Personal history of other venous thrombosis and embolism
CPT/HCPCS: 83735; 87081; 93005; 93306; 93460; 96374; 96375; 96376; 99285; C9113; G0480; J1170; J1200; J1644; J1650; J1940; J2270; J2405; J2930; J3490; Q9967